=== PATIENT | male | born 1935 | race Caucasian/White ===

== ENCOUNTER 2024-04-28 17:18 | Emergency (ER) | payer MEDICARE, SELFPAY ==
[2024-04-28 17:21] VITALS: BP 168/77
--- NOTE | 2024-04-28 17:22 | ED.GENMED ---
ED Provider Triage
<Pk Weathers Jr., PA-C - Last Filed: 04/28/24 17:25>
-
Patient seen by provider in Triage?: Seen in Triage
Attestation: A medical screening examination has been initiated by a qualified medical provider. Based on the assessment performed at this time, it has been determined that an emergent medical condition may exist and the patient has been informed
that further medical evaluation and possible additional diagnostic testing may be needed.
HPI: 88-year-old male presenting to the emergency department with concerns of low back pain rating down his left leg. He claims that he is had some degree of chronic issues with his left hip. Recently restarted doing some physical activity which
may have exacerbated. Has been taking Motrin at home without relief. Initial x-ray ordered for further assessment.
GENERAL: Alert , in no apparent distress
EYE: No visual abnormalities.
NECK: Trachea midline
ENT: No visible abnormalities.
LUNGS: No acute respiratory distress
NEUROLOGICAL: Alert and oriented
SKIN: Skin intact. No visible changes.
MUSCULOSKELETAL: Moving extremities normally
PSYCH: Normal and appropriate interaction.
This is a medical evaluation conducted in person to initiate diagnostic evaluation and provide initial therapeutics. Please see further documentation by the treating clinician.
History of Present Illness
<Pk Weathers Jr., PA-C - Last Filed: 04/28/24 17:25>
General
Chief Complaint: Musculo-Skeletal Complaint
Time Seen by Provider: 04/28/24 21:07
<Shaun Low DO, Resident - Last Filed: 04/28/24 22:30>
History of Present Illness
History of Present Illness:
88-year-old male past medical history hyperlipidemia, colon cancer status post 2 resections, hernia repair, left hip replacement and 7 foot surgeries. He presents for left sided lower back pain radiating down his leg which started approximately 12
days ago. Patient reports he was overdoing it with exercise and outdoor activities such as shoveling and the pain started afterwards. Patient has seen a pain management doctor previously for sciatica, he received cortisone injections and physical
therapy. He reports these did work, however he has not received injections or PT for approximately 6 months patient reports that his symptoms have been worsening in intensity. Patient denies bladder incontinence, no back pain at night and no
perianal paresthesias.
Past History
<Shaun Low DO, Resident - Last Filed: 04/28/24 22:30>
Past History
ED Past Medical History: Cancer and Hypercholesterolemia
ED Past Surgical History: Bowel resection and Orthopedic
Review of Systems
<Shaun Low DO, Resident - Last Filed: 04/28/24 22:30>
Review of Systems
Constitutional: Reports no symptoms
Respiratory: Reports no symptoms
Cardiac: Reports no symptoms
ABD/GI: Reports no symptoms
Musculoskeletal: Reports back pain
Neurological: Reports no symptoms
Phy Exam
<Shaun Low DO, Resident - Last Filed: 04/28/24 22:30>
General Physical Exam
General Presentation: well appearing and no apparent distress
Cardiovascular Exam
Cardiovascular Exam: regular rate/rhythm, no edema and no murmur
Pulmonary Exam
Pulmonary Exam: lungs clear
Gastrointestinal Exam
Gastrointestinal Exam: non tender, soft and non distended
Neurological Exam
Neurological Exam: alert, oriented x3, no motor deficits and no sensory deficits
Musculoskeletal Exam
Musculoskeletal Exam: back pain and other (No vertebral or paravertebral tenderness to palpation)
Course
<Pk Weathers Jr., PA-C - Last Filed: 04/28/24 17:25>
Orders/Labs/Results
Orders:
Orders
04/28/24 17:23
Lumbar Spine, 2 or 3 View [CR Lumbar Spine 2 Or 3 Views] Urgent
Comment:
Reason For Exam: back pain
04/28/24 21:29
Acetaminophen [Tylenol] 1,000 mg PO NOW STA
04/28/24 21:45
Oxycodone [Roxicodone] 5 mg PO NOW STA
04/28/24 22:28
Prednisone [Deltasone] 50 mg PO NOW STA
04/28/24 22:29
Acetaminophen [Tylenol] 650 mg PO NOW STA
Vital Signs
Initial and Last Documented VS:
Initial Vital Signs
Temp Pulse Resp BP Pulse Ox
98.2 F 84 18 168/77 96
04/28/24 17:21 04/28/24 17:21 04/28/24 17:21 04/28/24 17:21 04/28/24 17:21
Last Documented Vital Signs
Temp Pulse Resp BP Pulse Ox
98.2 F 84 18 168/77 96
04/28/24 17:21 04/28/24 17:21 04/28/24 17:21 04/28/24 17:21 04/28/24 17:21
<Shaun Low DO, Resident - Last Filed: 04/28/24 22:30>
Orders/Labs/Results
Orders:
Orders
04/28/24 17:23
Lumbar Spine, 2 or 3 View [CR Lumbar Spine 2 Or 3 Views] Urgent
Comment:
Reason For Exam: back pain
04/28/24 21:29
Acetaminophen [Tylenol] 1,000 mg PO NOW STA
04/28/24 21:45
Oxycodone [Roxicodone] 5 mg PO NOW STA
04/28/24 22:28
Prednisone [Deltasone] 50 mg PO NOW STA
04/28/24 22:29
Acetaminophen [Tylenol] 650 mg PO NOW STA
Vital Signs
Initial and Last Documented VS:
Initial Vital Signs
Temp Pulse Resp BP Pulse Ox
98.2 F 84 18 168/77 96
04/28/24 17:21 04/28/24 17:21 04/28/24 17:21 04/28/24 17:21 04/28/24 17:21
Last Documented Vital Signs
Temp Pulse Resp BP Pulse Ox
98.2 F 84 18 168/77 96
04/28/24 17:21 04/28/24 17:21 04/28/24 17:21 04/28/24 17:21 04/28/24 17:21
<Josiah Daugherty DO - Last Filed: 04/28/24 22:35>
Orders/Labs/Results
Orders:
Orders
04/28/24 17:23
Lumbar Spine, 2 or 3 View [CR Lumbar Spine 2 Or 3 Views] Urgent
Comment:
Reason For Exam: back pain
04/28/24 21:29
Acetaminophen [Tylenol] 1,000 mg PO NOW STA
04/28/24 21:45
Oxycodone [Roxicodone] 5 mg PO NOW STA
04/28/24 22:28
Prednisone [Deltasone] 50 mg PO NOW STA
04/28/24 22:29
Acetaminophen [Tylenol] 650 mg PO NOW STA
Vital Signs
Initial and Last Documented VS:
Initial Vital Signs
Temp Pulse Resp BP Pulse Ox
98.2 F 84 18 168/77 96
04/28/24 17:21 04/28/24 17:21 04/28/24 17:21 04/28/24 17:21 04/28/24 17:21
Last Documented Vital Signs
Temp Pulse Resp BP Pulse Ox
98.2 F 84 18 168/77 96
04/28/24 17:21 04/28/24 17:21 04/28/24 17:21 04/28/24 17:21 04/28/24 17:21
<Shaun Low DO, Resident - Last Filed: 04/28/24 22:30>
MDM/Problems Addressed
Differential Diagnosis Includes:
Sciatica versus neuropathy
MDM/Problems Addressed:
#Sciatica
Patient endorsing left-sided lower back pain radiating down back of left leg
Symptoms are consistent with sciatica
Patient denies red flag symptoms. No perianal paresthesias, bowel or bladder incontinence or back pain at night
Previous history of sciatica treated with physical therapy and cortisone injections
Last cortisone injection approximately 6 months ago
Patient reports exacerbation of symptoms after overdoing it with exercise
Pain management with Tylenol and oxycodone
Encourage patient to follow-up with physical therapy and/or his pain management physician for further cortisone injections
<Josiah Daugherty DO - Last Filed: 04/28/24 22:35>
*Critical Care Note
Total Time (30-74mins, 75-104mins- exclusive of procedures): Not Applicable
ED Attending Note
<Pk Weathers Jr., PA-C - Last Filed: 04/28/24 17:25>
-
Portions of this chart may have been created with voice recognition software.� Occasional wrong word or��sound alike� substitutions may have occurred due to the inherent limitations of voice recognition software.
<Josiah Daugherty, - Last Filed: 04/28/24 22:35>
ED Attending Note
Patient seen and examined by attending physician: Yes
I performed the substantive portion of visit, reviewed & personally made and approve the management plan that is documented in note by myself or MANDIE.: Yes
I performed a history and physical exam of patient and discussed management with resident, I reviewed resident's note and agree with documented findings and plan of care.: Yes
ED Attending Note:
Seen with MANDIE and resident agree with assessment and plan 88-year-old male history radiculopathy status post steroid injection presents with the same x-ray noted, will try to get comfortable short burst of steroids
Discharge Plan
Departure
Patient with high blood pressure during this ER visit?: No
Condition: Good
Discharge Problem:
Lumbar back pain
Instructions: Back exercises, Low back pain - ED discharge instructions
Prescriptions:
New
oxycodone 5 mg tablet
5 mg PO Q8H PRN (Reason: Pain) Qty: 20 0RF
methylprednisolone [Medrol (Luis)] 4 mg tablets,dose pack
See Rx Instructions .ROUTE .COMPLEX Qty: 21 0RF
Rx Instructions:
for 6 days
Referrals:
UNKNOWN - PT DOES,NOT KNOW [Family Provider] -
Interventions
Interventions:
*Risk Screen - Suicide Last Done: 04/28/24 17:21
*General Assessment Last Done: 04/28/24 17:21
*Neglect/Abuse Screening Last Done: 04/28/24 17:21
*ED COVID-19 Vaccine History Last Done: 04/28/24 17:21
ED-Musculoskeletal Assessment Last Done: 04/28/24 19:57
Discharge Date and Time
Print Language: UPPER SORBIAN
[2024-04-28] MEDS: ROXICODONE 5 MG PO (21:51)
[2024-04-28] MEDS: DELTASONE 50 MG PO (22:33)
[2024-04-28] MEDS: TYLENOL 650 MG PO (22:33)
== END 2024-04-28 22:50 | disposition home or self-care (01) ==
LOC: EMR 17:18
PROVIDERS: EMERGENCY PHYSICIAN Emergency Medicine
DX: M54.40 Lumbago with sciatica, unspecified side (principal); M54.16 Radiculopathy, lumbar region; M79.605 Pain in left leg; Z88.1 Allergy status to other antibiotic agents; E78.00 Pure hypercholesterolemia, unspecified; Z85.038 Personal history of other malignant neoplasm of large intestine; Z96.642 Presence of left artificial hip joint; Z98.0 Intestinal bypass and anastomosis status
CPT/HCPCS: 99283; 72100